=== PATIENT | female | born 1960 | race Caucasian/White ===

== ENCOUNTER 2019-07-10 09:02 | Outpatient (CLI) | payer OTHER ==
[~2019-07-10 09:02] MED LIST: Iopamidol 370 76% 100 ML VIAL ONE
--- NOTE | 2019-07-10 13:10 | CT ---
CT OF THE ABDOMEN AND PELVIS: DATE: 07/10/2019. COMPARISON: None. HISTORY: Fistulous communication between the vagina and colon. TECHNIQUE: Axial CT imaging at 5 mm intervals from lung bases through pubic symphysis with IV, oral, and rectal contrast. Coronal reformatted imaging obtained. FINDINGS: Imaged lung bases demonstrate no acute findings. Cholecystectomy clips are present. No free intraperi toneal air is seen. The hepatic parenchyma is diffusely hypodense, suggesting hepatic steatosis. The spleen, pancreas, adrenal glands, and kidneys appear unremarkable. There is a segment of the sigmoid colon which is thick-walled and irregularly marginated measuring ap proximately 10 cm in length. There is pericolonic fat stranding in this region. There are diverticula associated with the sigmoid colon in this region. Findings suggest acute diverticulitis. This abnormal segment of the sigmoid colon abuts the superior aspect of the urinary bladder and there is wall thickening of the superior aspect of the urinary bladder to the left of midline, sugges ting secondary urinary bladder inflammation. Between the sigmoid colon and the urinary bladder in this region are foci of gas and ill-defined areas of fluid which suggest possible localized perforati on. Fistulous communication cannot be excluded but no gas is seen within the urinary bladder in addition, the abnormal pericolonic stranding and fluid is inseparable from the anterior lateral aspec t of the vagina on the left. There are a few foci of gas within the vagina on axial image 86 and there is a probable fistulous communication between the posterior aspect of the sigmoid colon and the left vaginal fornix, best seen on axial image 85. No evidence for bowel obstruction. No contrast media extends into the vagina or urinary bladder on th is exam. There is no lymphadenopathy identified within the abdomen or pelvis. No acute osseous abnormality is noted. Multilevel lower lumbar spine facet hypertrophic change is see n. IMPRESSION: There is a 10 cm segment of thick-walled irregular sigmoid colon with extensive diverticular disease suggesting diverticulitis. There is small volume extraluminal extraluminal fluid and gas inferior to the sigmoid colon in this region abutting the superior aspect of the urinary bladder with associat ed urinary bladder wall thickening suggesting a contained area of microperforation. Follow-up imaging is advised to exclude future development of fistulous communication within urinary bladder. N o gas extends into the urinary bladder at this time. Prominent inflammatory change from the sigmoid colon is seen inseparable from the anterior aspect of the left vaginal fornix and there is gas within the vagina in this region. This is suspicious for fistulous communication between the sigmoid colon and the vagina. Transcribed Date/Time: 07/10/2019 1:31 PM
== END 2019-07-10 09:03 | disposition home or self-care (01) ==
LOC: SCSCT 09:02
PROVIDERS: ATTEND Student in an Organized Health Care Education/Training Program
DX: N82.3 Fistula of vagina to large intestine (principal); K57.30 Diverticulosis of large intestine without perforation or abscess without bleeding; N32.89 Other specified disorders of bladder
CPT/HCPCS: 74177; 82565; Q9967

== ENCOUNTER 2019-07-27 08:00 | Outpatient (CLI) | payer OTHER ==
[2019-07-27 12:30] LABS: #Basophils 0.1 thou/uL (0.0-0.2); #Eosinphils 0.2 thou/uL (0.0-0.7); #Monocytes 0.5 thou/uL (0.11-0.59); #Neutrophils 4.3 thou/uL (1.40-6.50); %Basophils 0.9 % (0.0-1.0); %Eosinophils 2.8 % (0.0-10.0); %Lymphocytes 28.7 % (21.0-51.0); %Monocytes 7.3 % (0.0-10.0); %Neutrophils 60.3 % (42.0-75.0); Hemoglobin 15.7 g/dL (12.0-16.0); Mean Corpuscular HGB CONC 35.1 g/dL (32.0-36.0); Mean Corpuscular Hemoglobin 34.4 pg (27.0-31.0); Mean Corpuscular Volume 98.1 fL (78.0-98.0); Mean Platelet Volume 6.8 fL (7.4-10.4); Platelet Count 282 thou/uL (130-400); RBC Distribution Width 12.1 % (11.5-14.5); Red Blood Cell (RBC) Count 4.57 mill/uL (4.20-5.40); White Blood Cell (WBC) Count 7.1 thou/uL (4.8-10.8)
[2019-07-27 12:43] LABS: Anion Gap 9 mmol/L (10-20); BUN (Urea Nitrogen) 8 mg/dL (9.8-20.1); Calc. Creatinine Clearance 0 mL/min (70-130); Calcium 9.1 mg/dL (7.8-10.44); Carbon Dioxide 27 mmol/L (22-29); Chloride 105 mmol/L (98-107); Estimated GFR-MDRD 78; Glucose 125 mg/dL (70-105); Potassium 4.1 mmol/L (3.5-5.1); Sodium 137 mmol/L (136-145)
[2019-07-27 12:46] LABS: Hemoglobin A1c 5.6 % (4.0-6.0)
--- NOTE | 2019-07-29 16:40 | EKG ---
Test Reason : Blood Pressure : / mmHG Vent. Rate : 077 BPM Atrial Rate : 077 BPM P-R Int : 184 ms QRS Dur : 084 ms QT Int : 380 ms P-R-T Axes : 033 003 026 degrees QTc Int : 430 ms Normal sinus rhythm Septal infarct , age undetermined Abnormal ECG No previous ECGs available Confirmed by DR. Sonido HASSAN ([id number]) on 07/29/2019 4:40:16 PM Referred By: GRACE Confirmed By:DR. Sonido HASSAN
== END 2019-07-27 08:01 | disposition home or self-care (01) ==
LOC: LABBT 08:00
PROVIDERS: ATTEND Surgery
DX: Z01.818 Encounter for other preprocedural examination (principal); N82.3 Fistula of vagina to large intestine
CPT/HCPCS: 80048; 83036; 85025; 93005; 93010

== ENCOUNTER 2019-07-27 10:30 | Inpatient (IN) | payer OTHER ==
[2019-07-27 11:24] VITALS: BMI 35.0
[2019-07-29] MEDS ORDERED: Fentanyl 100 MCG/2 ML VIAL ONE ×4 (11:47→16:50)
[2019-07-29] MEDS ORDERED: Bupivacaine/Epinephrine 0.25% 30 ML VIAL ONE (11:56)
[2019-07-29] MEDS ORDERED: Midazolam HCl 2 mg/2 ml Vial ONE ×2 (12:08→12:38)
[2019-07-29] MEDS ORDERED: Dexamethasone 4 mg/ml Vial ONE (12:09)
[2019-07-29] MEDS ORDERED: cefOXitin 2 GM VIAL ONE (12:44)
[2019-07-29] MEDS ORDERED: Sodium Chloride 0.9% 100 ML ONE (12:45)
[2019-07-29] MEDS ORDERED: SUGAMMADEX SODIUM 500 MG/5 ML VIAL ONE (14:28)
[2019-07-29] MEDS ORDERED: Ketorolac Tromethamine 30 MG/ML VIAL IVP PRN (14:31)
[2019-07-29] MEDS ORDERED: Meperidine HCl/PF 25 MG/ML VIAL SLOW IVP PRN (14:31)
[2019-07-29] MEDS ORDERED: Promethazine HCl 25 MG/ML VIAL SLOW IVP PRN (14:31)
[2019-07-29] MEDS ORDERED: Ondansetron HCl/PF 4 MG/2 ML Vial IVP PRN (14:31)
[2019-07-29] MEDS ORDERED: Promethazine HCl 25 MG/ML VIAL IM PRN ×2 (14:31→16:15)
[2019-07-29] MEDS ORDERED: HYDROmorphone 2 MG/ML VIAL SLOW IVP PRN (14:31)
[2019-07-29] MEDS ORDERED: Ondansetron PF 4 MG/2 ML Vial IVP PRN (16:15)
[2019-07-29] MEDS ORDERED: hydrALAZINE 20 MG/ML VIAL SLOW IVP PRN (16:15)
[2019-07-29] MEDS ORDERED: D5 1/2 NS w/20 mEq KCL 1,000 ML ONE (17:00)
[2019-07-29] MEDS: Acetaminophen 1,000 MG in Premix Bag 1 BAG IVPB SCH ×2 (18:07→23:35)
[2019-07-29] MEDS: D5 1/2 NS w/20 mEq KCL 1,000 ML IV SCH (18:15)
[2019-07-29] MEDS: Famotidine 20 MG TAB PO SCH (20:28)
[2019-07-29] MEDS: Enoxaparin Sodium 40 MG/0.4 ML SYRINGE SC SCH (20:29)
[2019-07-29] MEDS: Fentanyl 100 MCG/2 ML VIAL SLOW IVP PRN ×2 (20:30→22:40)
[2019-07-29] MEDS: Famotidine/PF 20 mg/2ml Vial SLOW IVP SCH (21:37)
--- NOTE | 2019-07-29 22:05 | OP ---
DATE OF PROCEDURE: 07/29/2019 PREOPERATIVE DIAGNOSIS: Chronic sigmoid diverticulitis with colovaginal fistula. POSTOPERATIVE DIAGNOSIS: Chronic sigmoid diverticulitis with colovaginal fistula. PROCEDURE PERFORMED: Laparoscopic hand-assisted sigmoid colectomy with low pelvic anastomosis. ANESTHESIA: General. ESTIMATED BLOOD LOSS: 200 mL. COMPLICATIONS: None. DESCRIPTION OF PROCEDURE: The patient was taken to the operating room and laid supine on the operating room table. After general anesthetic was obtained, Patel was placed, placed in lithotomy position. The abdomen and perineum were prepped and draped in a sterile fashion. Left subcostal 5 mm Optiview trocar was placed in the usual fashion and high-flow pneumoperitoneum was obtained. A right lower quadrant 12 mm port and a suprapubic 5 mm port were placed under direct visualization. The camera port was placed the right of the umbilicus. Hand assist port was placed in the left lower quadrant. Left hand was placed in the abdomen, the patient was placed in Trendelenburg position. Small bowel was able to be manipulated out of the pelvis. The medial aspect of the sigmoid colon mesentery was incised to the base of the inferior mesenteric artery. The inferior mesenteric artery was skeletonized. There was a short segment of severe diverticular changes in the sigmoid distal to this that was adhesed to the posterior surface of the bladder. Very carefully, this was using cautery and careful dissection dissected off the back wall of the bladder and the left pelvic sidewall. Left ureter was found and excluded from the dissection. This allowed the lower sigmoid to be exposed in the pelvis and the peritoneal reflection was opened and the upper rectum was exposed. The mesentery going down the medial mesenteric window was taken using the laparoscopic LigaSure. Again, care was taken to avoid injury to the left ureter, which was found and traced out and excluded from the dissection. Laparoscopic stapling device was stapled across the upper rectum. The top of the hand-assist port was removed allowing the colon proximal to the staple line to be brought up into the incision. Location for the proximal anvil placement was found. Colotomy was made distal to this. The anvil was passed through the colon proximally where a sharp pin was brought down on the antimesenteric surface of the colon above. Just distal to this, the colon specimen was stapled off and sent to Path for final diagnosis. This anvil colon proximally was dropped back into the abdominal cavity. Hand assist port was replaced. This anvil segment was able to brought down in the pelvis under no tension. This was a 31 EEA. The surgeon then goes to the perineum and the anal exam were performed using finger in the anal and then a finger was placed in the anus in order to dilate it. The EEA sizers were passed up to the end of the stapled off segment below under no tension. There was no stricture. The 31 EEA was then passed up and each sharp pin brought out on the antimesenteric surface of the colon below, this sharp pin was connected to the anvil from above and the stapler was tightened down to the green zone and fired. There were 2 good rings of tissue. The anastomosis was tested using air insufflation under water in the pelvis with no leakage. The distal colon was then decompressed. Care was taken to avoid incorporating the posterior wall of the vagina in the staple line and it was not. The pelvis was irrigated. There was no ongoing bleeding lap that had been left in the abdomen during the dissection was removed. No evidence of ischemia to the staple line. All port sites were infiltrated using local anesthetic. The GraNee needle and 0 Vicryl tie were used to close the fascial defect in the right lower quadrant. All ports were removed without bleeding. Pneumoperitoneum was let down. The hand-assist port and muscle-splitting incision in the left lower quadrant was closed using a running PDS with the posterior fascia and a PDS with the anterior fascia. This wound was irrigated using pulse irrigation. All OR staff and surgeon changed gloves and gowns and new instruments were used for skin closure. The left lower quadrant incision was closed 3-0 Vicryl, 4-0 Monocryl, and Dermabond. The rest of the incisions were closed using 4-0 Monocryl and Dermabond. The patient was sent to Recovery in stable condition. All instrument counts, needle counts, and lap counts were correct. Job ID: [id number]
[2019-07-30] MEDS: Fentanyl 100 MCG/2 ML VIAL SLOW IVP PRN ×5 (01:10→16:30)
[2019-07-30] MEDS: D5 1/2 NS w/20 mEq KCL 1,000 ML IV SCH (05:10)
[2019-07-30] MEDS: Acetaminophen 1,000 MG in Premix Bag 1 BAG IVPB SCH ×2 (05:10→12:36)
[2019-07-30 05:46] LABS: #Lymphocytes 0.8 thou/uL (1.20-3.40); #Monocytes 0.6 thou/uL (0.11-0.59); #Neutrophils 10.1 thou/uL (1.40-6.50); %Lymphocytes 7.2 % (21.0-51.0); %Monocytes 5.3 % (0.0-10.0); %Neutrophils 87.4 % (42.0-75.0); Hemoglobin 12.7 g/dL (12.0-16.0); Mean Corpuscular Hemoglobin 34.1 pg (27.0-31.0); Mean Corpuscular Volume 97.5 fL (78.0-98.0); Mean Platelet Volume 6.8 fL (7.4-10.4); Platelet Count 248 thou/uL (130-400); RBC Distribution Width 11.9 % (11.5-14.5); Red Blood Cell (RBC) Count 3.71 mill/uL (4.20-5.40); White Blood Cell (WBC) Count 11.6 thou/uL (4.8-10.8)
[2019-07-30 06:05] LABS: Anion Gap 12 mmol/L (10-20); BUN (Urea Nitrogen) 5 mg/dL (9.8-20.1); Calc. Creatinine Clearance 129 mL/min (70-130); Calcium 8.5 mg/dL (7.8-10.44); Carbon Dioxide 25 mmol/L (22-29); Chloride 107 mmol/L (98-107); Estimated GFR-MDRD 88; Glucose 168 mg/dL (70-105); Potassium 4.3 mmol/L (3.5-5.1); Sodium 140 mmol/L (136-145)
[2019-07-30] MEDS: Famotidine 20 MG TAB PO SCH ×2 (08:13→20:49)
[2019-07-30] MEDS: Famotidine/PF 20 mg/2ml Vial SLOW IVP SCH ×2 (09:00→20:49)
[2019-07-30] MEDS ORDERED: HYDROcodone/Acetaminophen 7.5/325 mg Tablet PO PRN ×2 (17:51)
--- NOTE | 2019-07-30 17:52 | PDOC.GSPN ---
Surgery Progress Note: Subj - Subjective Narrative: Doing well. Pain controlled. Tolerated clears no nausea Surgery Progress Note: Obj - Vital signs Vital signs: Vital Signs - Most Recent Temp Pulse Resp BP Pulse Ox 98.2 F 66 16 100/64 99 07/30/19 14:44 07/30/19 14:44 07/30/19 14:44 07/30/19 14:44 07/30/19 14:44 - Physical Exam General: no distress Cardiovascular: regular rate and rhythm Respiratory: clear to auscultation Abdomen: soft, nondistended, appropriately tender Wound: healing well Surgery Progress Note: Results - Labs Result Diagrams: 07/30/19 04:37 07/30/19 04:37 Lab results: Laboratory Results - last 24 hr 07/30/19 04:37 Sodium 140 Potassium 4.3 Chloride 107 Carbon Dioxide 25 Anion Gap 12 BUN 5 L Creatinine 0.68 Estimated GFR (MDRD) 88 Glucose 168 H Calcium 8.5 Surgery Progress Note: A/P - Problem (1) Colovaginal fistula Current Visit: Yes Code(s): N82.4 - OTHER FEMALE INTESTINAL-GENITAL TRACT FISTULAE Status: Acute - Plan Plan: POD 1 -advance to full liquids -HL IV -start oral pain control
[2019-07-30] MEDS: Enoxaparin Sodium 40 MG/0.4 ML SYRINGE SC SCH (20:49)
[2019-07-31] MEDS: Fentanyl 100 MCG/2 ML VIAL SLOW IVP PRN (02:18)
[2019-07-31] MEDS: Famotidine 20 MG TAB PO SCH (08:42)
[2019-07-31] MEDS: Famotidine/PF 20 mg/2ml Vial SLOW IVP SCH (08:45)
[2019-07-31 12:20] VITALS: BP 101/69; TEMP 98.1
--- NOTE | 2019-08-01 03:50 | DIS ---
DATE OF ADMISSION: 07/29/2019 DATE OF DISCHARGE: 07/31/2019 ADMITTING DIAGNOSIS: Colovaginal fistula, chronic diverticulitis. DISCHARGE DIAGNOSES: Colovaginal fistula, chronic diverticulitis. PROCEDURES: Laparoscopic hand assisted sigmoid colectomy. CONDITION ON DISCHARGE: Improved. HOSPITAL COURSE: On postop day 1, the patient was doing well. She was on a clear liquid diet, which she was tolerating. On postop day 2, she is tolerating a full liquid diet. She is being discharged home. Discharge medications include [place] 7.5 one p.o. q.6 hours p.r.n. pain and Zofran 4 mg ODT q.6 hours p.r.n. nausea. She is going to stay on a liquid diet for the next few days and then casserole diet and diet as tolerated. She will return to see me in the office next week. Job ID: [id number]
== END 2019-07-31 11:55 | disposition home or self-care (01) | DRG 330 ==
LOC: EDSTATUS 07-29 10:30 → SURG A 07-29 11:22
PROVIDERS: ADMIT Surgery; ATTEND Surgery
PROC: 0DBN0ZZ Excision of Sigmoid Colon, Open Approach (ICD-10-PCS; principal; 2019-07-29)
DX: N82.3 Fistula of vagina to large intestine (principal); K57.32 Diverticulitis of large intestine without perforation or abscess without bleeding; Z90.710 Acquired absence of both cervix and uterus
CPT/HCPCS: 36415; 36416; 80048; 85025; 88307; J0131; J0694; J1100; J1650; J2250; J3010; J3490; S0028